=== PATIENT | male | born 1940 | race Caucasian/White ===

== ENCOUNTER 2016-11-18 08:26 | Outpatient (CLI) | payer MEDICARE, OTHER ==
--- NOTE | 2016-11-18 15:56 | XRAY Report ---
LUMBAR SPINE: 11/18/2016 CLINICAL HISTORY: Persistent back pain. COMPARISON: None. FINDINGS: There is a mild mid lumbar dextroscoliosis. No definite anterolisthesis or retrolisthesis is seen. Prominent anterior vertebral body spurring most marked at T12-L1. Mild L4-5 and L5-S1 disk s pace narrowing. Scattered degenerative facet joint arthropathy most marked lower lumbar levels. No co mpression fracture or bone destruction. IMPRESSION: DEGENERATIVE CHANGES LUMBAR SPINE. LUMBAR SPINAL STENOSIS COULD BE PRESENT BUT WOULD BE BETTER ASSESSED BY CT OR MRI. JOB #: [id number] EXT JOB #:[id number]
--- NOTE | 2016-11-18 16:02 | XRAY Report ---
THORACIC SPINE: 11/18/2016 CLINICAL HISTORY: Back pain. FINDINGS: The thoracic vertebral bodies are normally aligned. There is slight height loss of T9 whic h appears chronic. Other levels of vertebral body spurring are present. Scattered degenerative disk c alcification and narrowing is noted. No acute fracture or bone destruction or other findings. IMPRESSION: DEGENERATIVE CHANGE THORACIC SPINE. JOB #: [id number] EXT JOB #:[id number]
== END 2016-11-18 08:27 | disposition home or self-care (01) ==
LOC: DI 08:26
PROVIDERS: ATTEND Internal Medicine
DX: M51.34 Other intervertebral disc degeneration, thoracic region (principal); M47.9 Spondylosis, unspecified
CPT/HCPCS: 72070; 72100

== ENCOUNTER 2017-01-13 14:38 | Outpatient (CLI) | payer MEDICARE, OTHER ==
[2017-01-13] MEDS ORDERED: IOPAMIDOL-300 100 ML VIAL ONE (15:01)
[2017-01-13 15:18] LABS: CREATININE 1.2 mg/dL (0.6-1.2)
[2017-01-13] MEDS ORDERED: IOPAMIDOL-300 100 ML VIAL IVP ONE (16:27)
--- NOTE | 2017-01-13 16:47 | CT Preliminary Report ---
Exam: CT LUMBAR SPINE W/WO IMPRESSION: Mild degenerative changes. No acute disease. RADIA The call report notification system was initiated by Dr. Stephan Rico at 16:39 hrs on 01/13/17. The above findings were discussed with ALISSON Newberry by Dr. Stephan Rico at 16:46 hrs on 01/13/17. SITE ID: [id number]
--- NOTE | 2017-01-13 16:50 | CT Report ---
EXAM: CT LUMBAR SPINE WITHOUT CONTRAST EXAM DATE: 01/13/2017 03:24 PM. CLINICAL HISTORY: LOW BACK PAIN, ELEVATED PSA.. COMPARISONS: None. TECHNIQUE: Thin-section axial images were acquired of the lumbar spine from T12 to S1 without contras t. Post-processing: Coronal and sagittal reformats. Other: None. In accordance with CT protocol optimization, one or more of the following dose reduction techniques w ere utilized for this exam: automated exposure control, adjustment of mA and/or KV based on patient s ize, or use of iterative reconstructive technique. FINDINGS: Alignment: Normal. No scoliosis or spondylolisthesis. Bones: 5 lumbar vertebrae. No fractures or bone lesions. Disk Levels/Facets: T12-L1: Unremarkable. L1-L2: Unremarkable. L2-L3: Mild diffuse disk bulge with peripheral calcifications. L3-L4: Mild diffuse disk bulge. Minimal degenerative facet disease. L4-L5: Small anterior osteophytes. L5-S1: Mild diffuse disk bulge. Anterior osteophytes. Minimal degenerative facet disease. Musculature: Unremarkable. Other: The visualized retroperitoneum is unremarkable. IMPRESSION: Mild degenerative changes. No acute disease. RADIA The call report notification system was initiated by Dr. Stephan Rico at 16:39 hrs on 01/13/17. The above findings were discussed with ALISSON Newberry by Dr. Stephan Rico at 16:46 hrs on 01/13/17. Referring Provider Line: [phone] SITE ID: [id number]
== END 2017-01-13 14:39 | disposition home or self-care (01) ==
LOC: DI 14:38
PROVIDERS: ATTEND Specialist
DX: M47.896 Other spondylosis, lumbar region (principal); M51.36 Other intervertebral disc degeneration, lumbar region
CPT/HCPCS: 36415; 72133; 82565; Q9967

== ENCOUNTER 2017-09-16 11:04 | Outpatient (CLI) | payer MEDICARE, OTHER ==
[2017-09-16 11:41] LABS: CREATININE 1.1 mg/dL (0.6-1.2)
[2017-09-16] MEDS ORDERED: IOPAMIDOL-300 100 ML VIAL ONE (12:32)
[2017-09-16] MEDS ORDERED: IOPAMIDOL-300 100 ML VIAL IVP ONE (12:57)
--- NOTE | 2017-09-16 15:02 | CT Report ---
Procedure Date: 09/16/2017 Accession Number: [id number] / [id number] Procedure: CT - IVP CPT Code: FULL RESULT: EXAM: IVP DATE: 09/16/2017 1:23 PM CLINICAL HISTORY: SUDDEN ONSET R FLANK/ABD PX COMPARISON: None. TECHNIQUE: Routine helical imaging was performed through the kidneys, ureters and bladder in the precontrast and postcontrast phases, using split bolus technique. IV Contrast: 100 mL of Isovue 300 Reconstructions: Coronal and sagittal. In accordance with CT protocol optimization, one or more of the following dose reduction techniques were utilized for this exam: automated exposure control, adjustment of mA and/or KV based on patient size, or use of iterative reconstructive technique. FINDINGS: Lung Bases: Bilateral dependent changes. Bilateral ureters: The left ureter is opacified throughout and demonstrates no filling defect. The right ureter is opacified to the pelvic inlet in the opacified portions also normal. There is no hydroureter or periureteral fat stranding on either side. There is no ureteral calculus. Evaluation of the most distal right ureter for tumor is limited by nonopacification. Right Kidney/Ureter: No stones, hydronephrosis, or masses. Left Kidney/Ureter: No stones, hydronephrosis, or masses. Other Solid Organs: The liver, spleen, pancreas, gallbladder, and adrenal glands are unremarkable. The bile ducts are unremarkable. Peritoneal Cavity/Bowel: Normal. No free fluid, free air or adenopathy. No masses. Bowel loops are unremarkable. Pelvic Organs: No bladder stones, obstruction or masses. The visualized pelvic organs are unremarkable. Vasculature: Vascular calcifications. Bones: Multilevel degenerative changes of the lumbar spine with no aggressive osseous lesions. Other: None. IMPRESSION: No evidence of renal stone disease. Please note CT flank pain protocol without intravenous contrast is sufficient for renal stone disease. Excretory phase urogram/CT IVP can be used for the detection of urothelial malignancies. With the exception of limited evaluation of the distal right ureter, no malignancy is detected. RADIA
== END 2017-09-16 11:05 | disposition home or self-care (01) ==
LOC: DI 11:04
PROVIDERS: ATTEND Family Medicine
DX: R10.9 Unspecified abdominal pain (principal)
CPT/HCPCS: 36415; 74178; 82565; Q9967

== ENCOUNTER 2018-07-22 17:16 | Emergency (ER) | payer MEDICARE, OTHER ==
[2018-07-22 17:51] LABS: BASOPHILS % (AUTO) 0.7 %; EOSINOPHILS # (AUTO) 0.1 10^3/uL (0.0-0.7); EOSINOPHILS % (AUTO) 1.3 %; HGB - HEMOGLOBIN 15.1 g/dL (14.0-18.0); LYMPHOCYTES # (AUTO) 1.8 10^3/uL (1.5-3.5); LYMPHOCYTES % (AUTO) 28.3 %; MEAN CORPUSCULAR HEMOGLOBIN 29.3 pg (27.0-31.0); MEAN CORPUSCULAR HGB CONC 33.9 g/dL (32.0-36.0); MEAN CORPUSCULAR VOLUME 86.2 fL (80.0-94.0); MEAN PLATELET VOLUME 7.6 fL (7.4-11.4); MONOCYTES # (AUTO) 0.5 10^3/uL (0.0-1.0); MONOCYTES % (AUTO) 8.7 %; NEUTROPHILS # (AUTO) 3.8 10^3/uL (1.5-6.6); PLT - PLATELET COUNT 212 10^3/uL (130-450); RED BLOOD COUNT 5.14 10^6/uL (4.70-6.10); RED CELL DISTRIBUTION WIDTH 13.8 % (12.0-15.0); WHITE BLOOD COUNT 6.2 x10^3/uL (4.8-10.8)
--- NOTE | 2018-07-22 17:53 | XRAY Report ---
Reason: chest pain Procedure Date: 07/22/2018 Accession Number: [id number] / [id number] Procedure: XR - Chest 1 View X-Ray CPT Code: 66354 FULL RESULT: EXAM: CHEST RADIOGRAPHY EXAM DATE: 07/22/2018 05:32 PM. CLINICAL HISTORY: Chest pain. COMPARISON: THORACIC SPINE 2 VIEW 11/18/2016 9:04 AM. TECHNIQUE: 1 view. FINDINGS: Lungs/Pleura: Mild interstitial prominence. Obscuration of left heart border; possible lingular infiltrate. Otherwise clear. No consolidation, effusion, or pneumothorax. Mediastinum: Mild to moderate cardiomegaly. Upper lobe vessels not distended. Other: Osteopenia, degenerative changes. IMPRESSION: Obscuration of the cardiac apex, suspicious for lingular infiltrate or atelectasis. RADIA
[2018-07-22 18:04] LABS: ALBUMIN 3.8 g/dL (3.2-5.5); TOTAL PROTEIN 7.5 g/dL (6.7-8.2)
--- NOTE | 2018-07-22 19:02 | ED Physician Documentation ---
PD HPI CHEST PAIN - Stated complaint Stated Complaint: CP - Chief complaint Chief Complaint: Cardiac - History obtained from History obtained from: Patient - History of Present Illness Timing - onset: How many days ago (3-4) Timing - onset during: Light activity (he had been doing chores and working with arms. Onset pain left chest with movement and breathing.) Timing - duration: Days (3-4) Timing - details: Gradual onset, Still present Quality: Aching, Sharp, Pain. No: Pressure, Tightness Location: Left chest (laterally) Radiation: No: Jaw, Neck, Back Improved by: Rest Worsened by: Inspiration, Movement, Position. No: Palpation Associated symptoms: Cough. No: Shortness of air, Diaphoresis, Nausea, Feeling faint / dizzy, Palpitations Similar symptoms before: Has not had sx before Recently seen: Not recently seen Review of Systems Constitutional: denies: Fever, Chills Nose: denies: Rhinorrhea / runny nose, Congestion Throat: denies: Sore throat Cardiac: reports: Chest pain / pressure. denies: Palpitations, Pedal edema, Calf pain Respiratory: reports: Cough (nonproductive). denies: Dyspnea, Wheezing GI: denies: Abdominal Pain, Nausea, Vomiting Skin: denies: Rash, Lesions PD PAST MEDICAL HISTORY - Past Medical History Past Medical History: Yes Cardiovascular: Hypertension, High cholesterol Respiratory: Pneumonia Neuro: None Endocrine/Autoimmune: None GI: GERD : Other HEENT: None Psych: None Musculoskeletal: Osteoarthritis Derm: None - Past Surgical History Past Surgical History: Yes Ortho: Carpal Tunnel surgery - Present Medications Home Medications: Ambulatory Orders Medication Instructions Recorded Confirmed Aspirin Chewable [[place] 1 tab ORAL 07/22/18 Aspirin] Benzonatate [Tessalon Perle] 100 mg PO TID PRN #30 capsule 07/22/18 Doxycycline Hyclate 100 mg PO BID #20 capsule 07/22/18 Hydrocodone/Acetaminophen [[place] 1 each PO Q6H PRN #15 tablet 07/22/18 5-325 Tablet] Lisinopril 1 tab ORAL DAILY 07/22/18 07/22/18 Tamsulosin [Flomax] 1 tab ORAL DAILY 07/22/18 07/22/18 dexAMETHasone [Decadron] 4 mg PO DAILY #5 tablet 07/22/18 - Allergies Allergies/Adverse Reactions: Allergies Allergy/AdvReac Type Severity Reaction Status Date / Time No Known Drug Allergies Allergy Verified 07/22/18 17:23 - Social History Does the pt smoke?: No Smoking Status: Former smoker Does the pt drink ETOH?: Yes ETOH Use: Beer, Liquor Does the pt have substance abuse?: No - Immunizations Immunizations are current?: No Immunizations: TDAP >10years/unknown - POLST Patient has POLST: No PD ED PE NORMAL - Vitals Vital signs reviewed: Yes - General General: Alert and oriented X 3, No acute distress, Well developed/nourished - HEENT HEENT: Pharynx benign - Neck Neck: Supple, no meningeal sign, No adenopathy - Cardiac Cardiac: RRR, No murmur - Respiratory Respiratory: Clear bilaterally, Other (some tenderness in muscles lateral left chest about ribs 6-10 without focality nor crepitance. Is tender around l atissimus insertion. ) - Abdomen Abdomen: Soft, Non tender - Back Back: No CVA TTP, No spinal TTP - Derm Derm: Normal color, Warm and dry, No rash - Neuro Neuro: Alert and oriented X 3, No motor deficit, Normal speech Results - Vitals Vitals: Oxygen O2 Source Room air - EKG (time done) 17:23 Rate: Rate (enter#) (71) Rhythm: NSR [place]: Normal Intervals: Normal NE QRS: Normal Ischemia: Normal ST segments. No: ST elevation c/w ischemia, ST depression - Labs Labs: Laboratory Tests 07/22/18 07/22/18 07/22/18 17:42 17:42 17:42 WBC 6.2 RBC 5.14 Hgb 15.1 Hct 44.3 MCV 86.2 MCH 29.3 MCHC 33.9 RDW 13.8 Plt Count 212 MPV 7.6 Neut # (Auto) 3.8 Lymph # (Auto) 1.8 Brule # (Auto) 0.5 Eos # (Auto) 0.1 Baso # (Auto) 0.0 Absolute Nucleated RBC 0.00 Nucleated RBC % 0.0 Sodium 138 Potassium 4.1 Chloride 103 Carbon Dioxide 25 Anion Gap 10.0 BUN 27 H Creatinine 1.0 Estimated GFR (MDRD) 72 L Glucose 102 H Calcium 9.0 Total Bilirubin 1.0 AST 24 ALT 26 Alkaline Phosphatase 78 Troponin I < 0.04 Total Protein 7.5 Albumin 3.8 Globulin 3.7 Albumin/Globulin Ratio 1.0 Lipase 36 - Rads (name of study) chest Radiology: Prelim report reviewed (no acute process), EMP read contemporaneously, See rad report Departure - Departure Disposition: 01 Home, Self Care Clinical Impression: Pleuritic chest pain Pneumonia Qualifiers: Pneumonia type: due to unspecified organism Laterality: left Lung location: upper lobe of lung Qualified Code(s): J18.1 - Lobar pneumonia, unspecified organism Condition: Stable Record reviewed to determine appropriate education?: Yes Instructions: ED Chest Pain Pleurisy, ED Pneumonia Adult Follow-Up: Orlin Robertson MD [Primary Care Provider] - Prescriptions: Benzonatate [Tessalon Perle] 100 mg PO TID PRN #30 capsule PRN Reason: Cough dexAMETHasone [Decadron] 4 mg PO DAILY #5 tablet Doxycycline Hyclate 100 mg PO BID #20 capsule Hydrocodone/Acetaminophen [[place] 5-325 Tablet] 1 each PO Q6H PRN #15 tablet PRN Reason: Pain Comments: Stay well-hydrated. Tylenol or ibuprofen or Aleve if needed for mild pains. Add Heidrich codon if needed for worse pain. Your chest x-ray shows a pneumonia in the part of the lung where you are hurting. Presume this pain is from inflammation around the surface of the lung (pleurisy). Use doxycycline twice daily antibiotic for the infection. Decadron steroid anti-inflammatory daily to help with the inflammation. Tessalon if needed for cough. Recheck if not improving over the next several days and return sooner if worsening. Discharge Date/Time: 07/22/18 20:49
[2018-07-22] MEDS ORDERED: oxyCODONE 5 MG TABLET PO STA (19:36)
[2018-07-22] MEDS ORDERED: KETOROLAC 30 MG/ML VIAL IVP STA (19:36)
[2018-07-22] MEDS ORDERED: DOXYCYCLINE 100 MG TABLET PO STA (19:37)
[2018-07-22] MEDS ORDERED: BENZONATATE 100 MG CAPSULE PO STA (19:37)
[2018-07-22] MEDS ORDERED: HYDROcod/ACET 5/325 Prepack 4 PO STA (20:39)
[2018-07-22 20:48] VITALS: BP 147/91
== END 2018-07-22 20:49 | disposition home or self-care (01) ==
LOC: ED 17:16
DX: J18.1 Lobar pneumonia, unspecified organism (principal); I10 Essential (primary) hypertension; Z87.891 Personal history of nicotine dependence
CPT/HCPCS: 36415; 71045; 80053; 83690; 84484; 85025; 93005; 96374; 99284; A9270

== ENCOUNTER 2018-08-08 16:13 | Outpatient (CLI) | payer MEDICARE, OTHER ==
--- NOTE | 2018-08-08 16:57 | XRAY Report ---
Reason: RECENT PNEUMONIA, RECURRENT COUGH Procedure Date: 08/08/2018 Accession Number: [id number] / [id number] Procedure: XR - Chest 2 View X-Ray CPT Code: 59196 FULL RESULT: EXAM: CHEST RADIOGRAPHY EXAM DATE: 08/08/2018 04:31 PM. CLINICAL HISTORY: RECENT PNEUMONIA, RECURRENT COUGH. COMPARISON: CHEST 1 VIEW 07/22/2018 5:21 PM. TECHNIQUE: 2 views. FINDINGS: Lungs/Pleura: Hypoventilatory chest. Lungs are clear. Normal pleural spaces. The pre-described right basilar pneumonia on the prior exam has resolved. Mediastinum: Heart and mediastinal contours are unremarkable. Other: None. IMPRESSION: No acute abnormality. No evidence of recurrent pneumonia. RADIA
== END 2018-08-08 16:14 | disposition home or self-care (01) ==
LOC: DI 16:13
PROVIDERS: ATTEND Physician Assistant Medical
DX: R05 Cough (principal); Z87.01 Personal history of pneumonia (recurrent)
CPT/HCPCS: 71046

== ENCOUNTER 2019-05-14 13:19 | Emergency (ER) | payer MEDICARE, OTHER ==
--- NOTE | 2019-05-14 13:40 | ED Physician Documentation ---
PD HPI URI - Stated complaint Stated Complaint: COUGH,SINUS PX - Chief complaint Chief Complaint: Resp - History obtained from History obtained from: Patient - History of Present Illness Timing - onset: How many weeks ago (1) Timing duration: Weeks (1) Timing details: Gradual onset, Still present Associated symptoms: Fever, Nasal congestion, Rhinorrhea (purulent mostly from left side), Sinus pain (left sided mostly), Sore throat, Dry cough Contributing factors: No: Sick contact, Travel Similar symptoms before: Diagnosis (pneumonia a year ago. Otherwise has clogged sinus left side regularly when well.) Recently seen: Clinic (directed to use OTC decongestants.) Review of Systems Constitutional: reports: Fever Ears: reports: Ear pain (left) Nose: reports: Rhinorrhea / runny nose, Sinus pressure / pain Throat: denies: Sore throat Respiratory: reports: Cough. denies: Dyspnea GI: denies: Vomiting, Diarrhea Skin: denies: Rash Neurologic: denies: Focal weakness, Numbness PD PAST MEDICAL HISTORY - Past Medical History Cardiovascular: Hypertension, High cholesterol Respiratory: Pneumonia Neuro: None Endocrine/Autoimmune: None GI: GERD : Benign prostate hypertrophy, Other HEENT: Chronic sinusitis Psych: None Musculoskeletal: Osteoarthritis Derm: None - Past Surgical History Past Surgical History: Yes Ortho: Carpal Tunnel surgery - Present Medications Home Medications: Ambulatory Orders Medication Instructions Recorded Confirmed Aspirin Chewable [[place] 1 tab ORAL 07/22/18 Aspirin] Benzonatate [Tessalon Perle] 100 mg PO TID PRN #30 capsule 07/22/18 Doxycycline Hyclate 100 mg PO BID #20 capsule 07/22/18 Hydrocodone/Acetaminophen [[place] 1 each PO Q6H PRN #15 tablet 07/22/18 5-325 Tablet] Tamsulosin [Flomax] 1 tab ORAL DAILY 07/22/18 07/22/18 dexAMETHasone [Decadron] 4 mg PO DAILY #5 tablet 07/22/18 lisinopriL [Lisinopril] 1 tab ORAL DAILY 07/22/18 07/22/18 Albuterol Sulfate [Albuterol 2 puffs IH QID #1 hfa.aer.ad 05/14/19 Sulfate Hfa] Benzonatate [Tessalon Perle] 100 - 200 mg PO TID PRN #30 capsule 03/15/20 Cefuroxime Axetil [Cefuroxime] 500 mg PO BID #14 tablet 05/14/19 Cetirizine [ZyrTEC] 10 mg PO DAILY #30 tablet 05/14/19 Fluticasone [Flonase] 1 sprays [place]ERMAN DAILY #1 bottle 05/14/19 dexAMETHasone [Decadron] 4 mg PO DAILY #5 tablet 05/14/19 - Allergies Allergies/Adverse Reactions: Allergies Allergy/AdvReac Type Severity Reaction Status Date / Time No Known Drug Allergies Allergy Verified 05/14/19 13:24 - Social History Does the pt smoke?: No Smoking Status: Former smoker Does the pt drink ETOH?: Yes Does the pt have substance abuse?: No - Immunizations Immunizations are current?: No Immunizations: TDAP >10years/unknown - POLST Patient has POLST: No PD ED PE NORMAL - Vitals Vital signs reviewed: Yes - General General: Alert and oriented X 3, No acute distress, Well developed/nourished - HEENT HEENT: Ears normal, Pharynx benign - Neck Neck: Supple, no meningeal sign, No adenopathy - Cardiac Cardiac: RRR, No murmur - Respiratory Respiratory: Clear bilaterally - Derm Derm: Normal color, Warm and dry - Neuro Neuro: Alert and oriented X 3, No motor deficit, Normal speech Results - Vitals Vitals: Vital Signs - 24 hr 05/14/19 05/14/19 05/14/19 13:24 13:40 14:48 Temperature 36.7 C 37 C 37 C Heart Rate 110 H 111 H 102 H Respiratory 14 18 18 Rate Blood Pressure 178/86 H 172/89 H 143/83 H O2 Saturation 96 96 96 Oxygen O2 Source Room air PD MEDICAL DECISION MAKING - ED course Complexity details: considered differential (Seems like URI but has focal left sinus symptoms as well. ), d/w patient Departure - Departure Disposition: 01 Home, Self Care Clinical Impression: Sinusitis, acute Qualifiers: Sinusitis location: maxillary Recurrence: non-recurrent Qualified Code(s): J01.00 - Acute maxillary sinusitis, unspecified Acute bronchitis Qualifiers: Bronchitis organism: unspecified organism Qualified Code(s): J20.9 - Acute bronchitis, unspecified Condition: Stable Record reviewed to determine appropriate education?: Yes Instructions: ED Upper Resp Infec Abx Tx, ED Sinusitis Abx Tx Follow-Up: Orlin Robertson MD [Primary Care Provider] - Prescriptions: Albuterol Sulfate [Albuterol Sulfate Hfa] 2 puffs IH QID #1 hfa.aer.ad Benzonatate [Tessalon Perle] 100 - 200 mg PO TID PRN #30 capsule PRN Reason: Cough Cefuroxime Axetil [Cefuroxime] 500 mg PO BID #14 tablet Cetirizine [ZyrTEC] 10 mg PO DAILY #30 tablet dexAMETHasone [Decadron] 4 mg PO DAILY #5 tablet Fluticasone [Flonase] 1 sprays SHERMAN DAILY #1 bottle Comments: Stay well-hydrated. Tylenol ibuprofen for fevers or pains. Cefuroxime antibiotic twice daily for a week. Tessalon as needed for cough suppression. Decadron for inflammation of the sinuses and bronchials. Also use albuterol inhaler 2 puffs 4 times a day for the wheeziness and cough. There may be mainly a viral illness for most of this but does sound likely bacterial for the sinus infection Raul may be the bronchitis. Once you are better, use the Flonase nasal spray and cetirizine and histamine daily for a week and see if it will help your sinuses in general. Recheck if not improved well over the next several days. [facility] [place] Discharge Date/Time: 05/14/19 14:54
[2019-05-14] MEDS ORDERED: CHERRY SYRUP 10 ML UDC PO ONE (14:17)
[2019-05-14] MEDS ORDERED: DEXAMETHASONE 10 MG/ML VIAL PO STA (14:17)
[2019-05-14] MEDS ORDERED: guaiFENesin/CODEINE 5 ML UDC PO STA (14:17)
[2019-05-14] MEDS ORDERED: BENZONATATE 100 MG CAPSULE PO STA (14:17)
[2019-05-14 14:49] VITALS: BP 143/83
== END 2019-05-14 14:54 | disposition home or self-care (01) ==
LOC: ED 13:19
DX: J01.00 Acute maxillary sinusitis, unspecified (principal); J20.9 Acute bronchitis, unspecified; I10 Essential (primary) hypertension
CPT/HCPCS: 99284; 99285; A9270

== ENCOUNTER 2019-08-24 14:44 | Outpatient (CLI) | payer MEDICARE, OTHER ==
--- NOTE | 2019-08-24 16:21 | XRAY Report ---
PROCEDURE: Lumbar Spine 2 View INDICATIONS: L LOW BACK PX TECHNIQUE: 2 views of the lumbar spine were acquired. COMPARISON: None. FINDINGS: Bones: 5 [id number] vertebrae are present. There is normal bony alignment. No vertebral body compression fractures. No suspicious bony lesions. Multilevel endplate osteophyte formation through out the lumbar and lower thoracic spine. Facet hypertrophy throughout the lumbar spine, worst at L3-L 4 and L4-L5. Soft tissues: Overlying bowel gas pattern is normal. No suspicious soft tissue calcifications. IMPRESSION: 1. Multilevel degenerative disc and facet disease. 2. No acute fracture. No osseous lesion. If symptoms and/or clinical suspicion for pathology continue , further assessment with repeat plain films, or advanced imaging (e.g., CT, MRI, or bone scan) is re commended for further assessment. Reviewed by: Jose Ortega MD on 08/24/2019 4:20 PM PDT Approved by: Jose Ortega MD on 08/24/2019 4:20 PM PDT Station ID: [id number]
== END 2019-08-24 14:45 | disposition home or self-care (01) ==
LOC: DI 14:44
PROVIDERS: ATTEND Physician Assistant
DX: M51.36 Other intervertebral disc degeneration, lumbar region (principal); M47.816 Spondylosis without myelopathy or radiculopathy, lumbar region; M47.817 Spondylosis without myelopathy or radiculopathy, lumbosacral region
CPT/HCPCS: 72100

== ENCOUNTER 2021-03-14 13:45 | Outpatient (CLI) | payer MEDICARE, OTHER | END 2021-03-14 23:59 | disposition home or self-care (01) | LOC: LAB.N 13:45 | PROVIDERS: ATTEND Physician Assistant | DX: R05.3 Chronic cough (principal); Z20.822 Contact with and (suspected) exposure to COVID-19 ==

== ENCOUNTER 2023-08-23 13:53 | Outpatient (CLI) | payer MEDICARE, OTHER ==
--- NOTE | 2023-08-25 10:36 | SLEEP CARE CONSULTATION ---
Information from patient questionnaire entered by Narciso Workman. I have reviewed and concur with the information entered by Narciso Workman. This document represents the service I personally performed and the decisions made by me, Nate Duke MD, [facility]. History of Present Illness Service Date and Time: 08/23/2023 1353 Reason for Visit: New patient Chief Complaint: reports: Unrefreshed sleep, Fatigue Date of Onset: SLOWLY GETTING WORSE OVER THE YRS Usual bedtime: 2300 Time it takes to fall asleep: VARIES Observed to quit breathing while asleep: No Sleeps alone due to snoring: No Number of times waking at night: 2-3 Reasons for waking at night: reports: Bathroom, Other (UNKNOWN) Recalls having dreams: Yes Usually gets out of bed at: [id number] Feels refreshed in the morning: No Morning headache: No Sleepy or fatigued during the day: Yes Ever fallen asleep while driving: No Takes day naps: Yes Prior sleep studies: Yes Additional HPI information: I had the pleasure of seeing Mr. Araujo today regarding the possibility of him having a sleep disorder. As you know, he is an 84 year old gentleman who was seen by an ENT for chronic nasal congestion and recommended to have a sleep study. He said he had a sleep study 25 years ago that was negative. Since then, he is 30 lbs heavier The patient tells me that he normally goes to bed around 10:30 11:30 pm, and it takes him variable amount of time to fall asleep. He has not been told that he snores loudly or irregularly at night. He has never been observed to stop breathing in his sleep. However, he sleeps alone. He can recall waking up on the average of 1 - 2 times during the night. Most of the time he wakes up because of having to use the bathroom. He has not awakened occasionally because of his own snoring, choking, or having to gasp for air. There is not a lot of tossing and turning in his sleep. No somniloquy (sleep talking) or somnambulism (sleep walking). In the morning he usually gets up out of the bed around 5:30 a.m. feeling refreshed and rested. He usually does not have a morning headache. During the day he complains of feeling occasionally sleepy and fatigued. His score on [place] Sleepiness Scale is 7 out of 24. He fell asleep once while driving. He usually takes naps during the day. He reports having impaired concentration during the day. - Parasomnia Symptoms Ever been unable to move upon waking from sleep: No Walks in sleep: No Talks in sleep: No Ever acted out dreams in sleep: No Ever felt weak in the knees when startled or emotional: No Bothered by creepy, crawly, restless sensations in legs: No Problems with memory or concentration: Yes Subjective Initial [place] Sleepiness Scale score: 7 (08/23/23) Past Medical History Past Medical History: reports: Hypertension, GERD Social History The patient's occupation is a RE. Patient is and lives in . Have you smoked in the past 12 months: No Alcohol use: Yes Alcohol amount and frequency: 2 A DAY 2-3X WEEK Caffeine use: Yes Caffeine amount and frequency: 1-2 CUPS 5 TIMES PER WEEK Family History Family history of sleep disordered breathing: Yes Family Hx Sleep Apnea: Father: Snoring Allergies and Home Medications Known drug allergies: No Drug allergies reviewed: Yes Home medication list reviewed: Yes Allergy and home medication list: Allergies No Known Drug Allergies Allergy (Verified 08/19/23 10:54) Review of Systems Weight gain over past 5 years: 15 Weight loss over past 5 years: 15 Cardiovascular: reports: high blood pressure Respiratory: reports: wheeze, sputum production, chronic cough Urinary: reports: frequency, urgency Neurological: denies: headaches, seizure, head trauma, disorientation, speech dysfunction, gait or balance problems, fainting or unconsciousness, other Psychiatric: denies: Attention Deficit Hyperactivity, anxiety, depression, mood disorder, claustrophobia, other Ear/Nose/Throat: reports: nasal congestion, sinus problems, dry mouth/throat, hoarseness Endocrine: reports: sluggishness Musculoskeletal: reports: muscle pain or cramping Immunologic: reports: sneezing Physical Exam Vital signs obtained and entered by: NARCISO Yu MA Blood Pressure: 147/73 (RIGHT ARM) Cuff size: long Heart Rate: 56 O2 Saturation: 96 Height: 5 ft 5 in Weight: 204 lb 3.2 oz Body Mass Index: 34.0 BMI Classification: Obese Neck circumference: 17 Mood/affect: Normal Impression and Plan IMPRESSION: 1. Obstructive Sleep Apnea-Hypopnea Syndrome, as suggested by his symptoms cognitive impairment and daytime hypersomnolence and history of hypertension. Narrow oropharynx and obesity are common predisposing factors for obstructive sleep apnea-hypopnea syndrome. [place] Questionnaire score is 5, which makes him at a moderate risk of having the sleep-related breathing disorder. I recommend proceeding to polysomnography to confirm the diagnosis and to assess severity. If he has significant sleep disordered breathing, a manual CPAP titration study will also be performed to find the optimal treatment pressure. I informed the patient of what the sleep studies involve and after some discussion, he agreed to proceed. Plan: 1. Schedule polysomnography and return in 1 to 2 weeks after the study to discuss result and initiate therapy. 2. Avoid long distance driving or when feeling sleepy. 3. Avoid alcohol, sedative and muscle relaxant around bedtime. 4. Attempt to lose weight. Counseling Topics: Weight control Follow up with Sleep Care in: 1-2 months Follow up recommended for: Weight management Visit Type: In Office Patient Location: Home Location of Provider: Home Patient agrees and consents to this telehealth visit type: Yes Patient agrees to have their insurance billed: Yes Time Spent with Patient (minutes): 20 Provider Statement: I spent 100% of the Face to Face Visit with the patient with greater than 50% spent counseling the patient and coordination of care.
[2023-08-25 10:41] VITALS: BP 147/73; O2SAT 96
== END 2023-08-23 13:54 | disposition home or self-care (01) ==
LOC: SC 13:53
PROVIDERS: ATTEND Internal Medicine Pulmonary Disease
DX: G47.10 Hypersomnia, unspecified (principal); R41.89 Other symptoms and signs involving cognitive functions and awareness; E66.9 Obesity, unspecified; Z68.34 Body mass index [BMI] 34.0-34.9, adult; I10 Essential (primary) hypertension

== ENCOUNTER 2023-09-04 20:47 | Outpatient (CLI) | payer MEDICARE, OTHER | END 2023-09-04 20:48 | disposition home or self-care (01) | LOC: SC 20:47 | PROVIDERS: ATTEND Internal Medicine Pulmonary Disease | DX: G47.33 Obstructive sleep apnea (adult) (pediatric) (principal); E66.9 Obesity, unspecified; Z68.34 Body mass index [BMI] 34.0-34.9, adult | CPT/HCPCS: 95810 ==

== ENCOUNTER 2023-10-11 10:05 | Outpatient (CLI) | payer MEDICARE, OTHER ==
--- NOTE | 2023-10-12 08:46 | SLEEP CARE CONSULTATION ---
Information from patient questionnaire entered by Narciso Workman. I have reviewed and concur with the information entered by Narciso Workman. This document represents the service I personally performed and the decisions made by me, Nate Duke MD, [facility]. History of Present Illness Service Date and Time: 10/11/2023 1005 Initial [place] Sleepiness Scale score: 7 (08/23/23) Current [place] Sleepiness Scale score: 10 (10/11/23) Additional HPI information: Mr. Araujo returned for follow up of the sleep study he had on 09-04-23. The polysomnography showed that The patient had minimally reduced sleep efficiency. The sleep architecture was abnormal for sleep fragmentation and lack of slow wave sleep (N3). Respiratory monitoring showed moderate obstructive sleep apnea- hypopnea (AHI = 16.5) associated with frequent arousals, oxyhemoglobin desaturation and mild hypoxia (randa oxygen saturation of 82%). The respiratory events occurred slightly more frequently during supine sleep (supine AHI = 19.2; non-supine = 15.79). No audible snore. There was severe periodic leg movement of sleep, contributing to the sleep fragmentation. Cardiac rhythm was normal sinus rhythm without significant arrhythmia with occasional premature ventricular contractions. No abnormal behavior (parasomnia) observed during the night. The patient was informed of these findings. I explained to him the pathop hysiology behind obstructive sleep apnea. We then spent quite a bit of time discussing different treatment options. For mild obstructive sleep apnea, surgery and oral appliance are alternatives to nasal CPAP therapy but in moderate or severe cases, nasal CPAP is the most effective and reliable treatment. Weight loss in an obese individual is strongly recommended. After some discussion, he opted to go with the nasal CPAP therapy. I explained to him how CPAP machine works and what to expect when using the machine. The patient says he has several friends that use CPAP. Sleep Study - Results Type of Sleep Study: Polysomnography (COMPLETED 09/04/23) Prior sleep studies: Yes Allergies and Home Medications Drug allergies reviewed: Yes Home medication list reviewed: Yes Allergy and home medication list: Allergies No Known Drug Allergies Allergy (Verified 10/11/23 10:06) Review of Systems Review of systems same as previous: Yes (NO CHANGE) Physical Exam Vital signs obtained and entered by: NARCISO Yu MA Blood Pressure: 153/83 (LEFT ARM) Cuff size: regular Heart Rate: 85 O2 Saturation: 96 Height: 5 ft 5 in Weight: 201 lb Body Mass Index: 33.4 BMI Classification: Obese Impression and Plan IMPRESSION: 1. Obstructive Sleep Apnea-Hypopnea Syndrome, moderate, associated with mild hypoxemia and sleep fragmentation. Most likely, this is the cause of the patients symptoms of unrefreshed sleep, and excessive daytime sleepiness. As mentioned above, the patient will return for a manual CPAP/BiPAP titration study. PLAN: 1. Schedule a manual CPAP/BiPAP titration study. 2. Attempt to lose weight and avoid alcohol consumption near bedtime. 3. The patient is again cautioned about driving until his sleepiness completely resolves on the CPAP therapy. 4. Return in one month for follow up. I will start the positive airway pre ssure therapy at that time. Counseling Topics: Weight control Follow up with Sleep Care in: 1-2 months Visit Type: In Office Time Spent with Patient (minutes): 15 Provider Statement: I spent 100% of the Face to Face Visit with the patient with greater than 50% spent counseling the patient and coordination of care.
[2023-10-12 08:55] VITALS: BP 153/83; O2SAT 96
== END 2023-10-11 10:06 | disposition home or self-care (01) ==
LOC: SC 10:05
PROVIDERS: ATTEND Internal Medicine Pulmonary Disease
DX: G47.33 Obstructive sleep apnea (adult) (pediatric) (principal); E66.9 Obesity, unspecified; Z68.33 Body mass index [BMI] 33.0-33.9, adult
CPT/HCPCS: 99212; G0463

== ENCOUNTER 2023-10-24 20:32 | Outpatient (CLI) | payer MEDICARE, OTHER | END 2023-10-24 20:33 | disposition home or self-care (01) | LOC: SC 20:32 | PROVIDERS: ATTEND Internal Medicine Pulmonary Disease | DX: G47.33 Obstructive sleep apnea (adult) (pediatric) (principal); G47.61 Periodic limb movement disorder | CPT/HCPCS: 95811 ==

== ENCOUNTER 2023-11-12 08:32 | Outpatient (CLI) | payer MEDICARE, OTHER ==
--- NOTE | 2023-11-12 09:24 | Sleep Patient Instructions ---
Sleep Center Visit Summary - Patient Visit Information Reason for Visit: Titration study follow-up to initiate therapy - Patient Instructions Instructions Attached: CPAP Additional Instructions: You are being started on CPAP therapy with pressure setting at 4-8 cmH2O. You will need to call the sleep care office to set up your follow up once you have your CPAP machine to check compliance and response to therapy at that time. You may call the office with any concerns about pressure feeling too low or too much for adjustment, if needed. You should contact DME supplier for any questions or concerns about mask or equipment. Please call office to schedule a follow up appointment in the sleep care office one month after obtaining new device. - Clinic Information Contact: [facility] [address] [place] [address] [email or web address] T: [phone]
--- NOTE | 2023-11-12 09:27 | SLEEP CARE CONSULTATION ---
Information from patient questionnaire entered by Margie Workman. I have reviewed and concur with the information entered by Margie Workman. This document represents the service I personally performed and the decisions made by , Camila Badillo ARNP. History of Present Illness Service Date and Time: 11/12/2023 0832 Initial [place] Sleepiness Scale score: 7 (08/23/23) Current [place] Sleepiness Scale score: 9 (11/12/23) Additional HPI information: LAVERN TALBOT returns for follow up of the sleep study with a manual CPAP titration study performed on 10/24/23. He was diagnosed with moderate KATHRYN on 09/04/23 with an average AHI of 16.5. The patient was informed of the following polysomnography findings: I explained that the optimal CPAP pressure is 6 cmH2O. CPAP at 6 cmH2O appeared to be optimal (AHI of 0 per hour on the pressure) and 4-8 cmH2O was also recommended. There was REM sleep on the pressure. The patient did not sleep supine. Oxygen saturation was minimally low. The patient appeared to have tolerated positive airway pressure therapy fairly well. The patient will be started on CPAP therapy. Nasal autoCPAP set at 4-8 cmH20 will be ordered with rationale explained. I explained how CPAP machine works and what to expect when using the machine. Using CPAP every night in order to get used to it was emphasized. Patient advised to put CPAP mask on before getting into bed so as not to fall asleep without CPAP. To assist acclimation to CPAP use, it could also be used for a short time during day while reading or watching TV. The patient was instructed to call the CPAP supplier to discuss any mechanical problem that may occur. If the mask given is uncomfortable or is difficult to keep on through the night even with adjustment, contact the CPAP supplier as many will replace with another mask style if notified before 30 days. If snoring or perceives is not getting enough air or too much air from the machine, notify this office. Patient counseled not drink alcohol less than 4 hours before bedtime as it can increase snoring and apnea. Patient was cautioned about risks of drowsy driving until sleepiness symptoms resolve. Patient denies drowsy driving. Sleep Study - Results Type of Sleep Study: Polysomnography (TITRATION STUDY COMPLETED 10/24/2023) Prior sleep studies: Yes Polysomnography/Home Sleep Study results: IMPRESSION: The quality of the study is good. CPAP was initiated at 6 cmH2O and left there. CPAP at 6 cmH2O appeared to be optimal (AHI of 0 per hour on the pressure). There was REM sleep on the pressure. The patient did not sleep supine. Oxygen saturation was minimally low. The patient appeared to have tolerated positive airway pressure therapy fairly well. The patients sleep efficiency was reduced as he was awake during the first half of the night. The sleep architecture was otherwise relatively normal considering the first-night effect. There was severe periodic leg movement of sleep not associated with sleep fragmentation. Cardiac rhythm was normal sinus rhythm with occasional premature ventricular contractions. No abnormal behavior (parasomnia) observed during the night. Allergies and Home Medications Known drug allergies: No Drug allergies reviewed: Yes Home medication list reviewed: Yes (no changes) Allergy and home medication list: Allergies No Known Drug Allergies Allergy (Verified 11/12/23 08:47) Review of Systems Review of systems same as previous: No (EYE INJECTIONS, WAITING FOR BACK INJECTIONS) Physical Exam Vital signs obtained and entered by: MARGIE Yu MA Blood Pressure: 156/74 (LEFT ARM) Cuff size: regular Heart Rate: 81 O2 Saturation: 93 Height: 5 ft 5 in Weight: 201 lb 9.6 oz Body Mass Index: 33.5 BMI Classification: Obese Impression and Plan 1. Obstructive Sleep Apnea-Hypopnea Syndrome, moderate. He returns to the office after his CPAP titration study. His optimal pressure was documented as 6 cmH2O. Positive pressure therapy could benefit hypertension and gastric reflux. As mentioned above, the patient will be started on nasal autoCPAP therapy with pressure set at 4-8 cmH2O. Compliance guidelines also reviewed. A copy of compliance guidelines will be given for reference at check out. 2. Periodic limb movement, severe, that did not fragment patients sleep. Periodic limb movement of sleep (PLMS) is characterized by episodes of repetitive limb movements that occur during sleep and usually involve the lower limbs. The etiology is unknown. Patient was advised that no treatment is needed at this time. If symptoms increase, then further evaluation is indicated. 3. Obesity, unspecified. Currently patients BMI is 33.5. Obesity increases the risk of apnea, CPAP pressure requirements and overall health risks especially cardiovascular and diabetes. Thus patient is advised to lose weight. * Nasal auto CPAP therapy, pressure at 4-8 cmH2O. * Attempt to lose weight. * Avoid alcohol consumption near bedtime. * Avoid supine sleep until using CPAP. * The patient is again cautioned about driving until sleepiness completely resolves. * Return one month after CPAP obtained. I will assess response to therapy and compliance at that time. Counseling Topics: Weight loss health impact Prescriptions: Auto CPAP Follow up with Sleep Care in: other (compliance follow up) Visit Type: In Office Time Spent with Patient (minutes): 24 Provider Statement: I spent 100% of the Face to Face Visit with the patient with greater than 50% spent counseling the patient and coordination of care.
[2023-11-12 09:47] VITALS: BP 156/74; O2SAT 93
== END 2023-11-12 08:33 | disposition home or self-care (01) ==
LOC: SC 08:32
PROVIDERS: ATTEND Nurse Practitioner Family
DX: G47.33 Obstructive sleep apnea (adult) (pediatric) (principal); G47.61 Periodic limb movement disorder; E66.9 Obesity, unspecified; Z68.33 Body mass index [BMI] 33.0-33.9, adult
CPT/HCPCS: 99213; G0463; 99212